=== PATIENT | male | born 1955 | race Caucasian/White ===

== ENCOUNTER → 2017-02-24 | Outpatient (CLI) | payer BC ==
[2017-02-24 11:00] LABS: HEMATOCRIT 52.4 % (37.9-51.0); HEMOGLOBIN 18.3 g/dL (13.5-17.0); HGB HCT DIFFERENCE 2.5; MEAN CORPUSCULAR HEMOGLOBIN 32.4 pg (27.0-33.4); MEAN CORPUSCULAR HGB CONC 34.9 g/dL (32.0-36.0); MEAN CORPUSCULAR VOLUME 93 fl (80-97); RED BLOOD COUNT 5.64 10^6/uL (4.35-5.55); RED CELL DISTRIBUTION WIDTH 12.6 % (11.5-14.0)
[2017-02-24 11:29] LABS: ALANINE AMINOTRANSFERASE 51 U/L (21-72); ALBUMIN 4.7 g/dL (3.5-5.0); ALKALINE PHOSPHATASE 97 U/L (38-126); ANION GAP 15 (5-19); ASPARTATE AMINO TRANSFERASE 45 U/L (17-59); BILIRUBIN,DIRECT 0.6 mg/dL (0.0-0.4); BILIRUBIN,TOTAL 1.6 mg/dL (0.2-1.3); BLOOD UREA NITROGEN 11 mg/dL (7-20); CALCIUM 10.2 mg/dL (8.4-10.2); CARBON DIOXIDE 26 mmol/L (22-30); CHLORIDE 101 mmol/L (98-107); CREATININE RESULT 0.95 mg/dL (0.52-1.25); GLUCOSE 191 mg/dL (75-110); POTASSIUM 3.9 mmol/L (3.6-5.0); SODIUM 141.5 mmol/L (137-145); TOTAL PROTEIN 7.9 g/dL (6.3-8.2)
[2017-02-27 06:39] LABS: HEPATITIS C GENOTYPE 3 1a (.)
[2017-02-27 07:43] LABS: HCV ALPHA 2-MACROGLOBULINS QNT 454 mg/dL (110-276); HCV FIBROSURE ALT P5P 48 IU/L (0-55); HCV FIBROSURE GGT 254 IU/L (0-65); HCV FIBROSURE HAPTOGLOBIN 157 mg/dL (34-200); HCVFIB APOLIPOPROTEIN A-1 136 mg/dL (101-178); NECROINFLAM ACTIVITY GRADE A1-A2 (.); NECROINFLAMM ACTIVITY SCORE 0.49 (0.00-0.17)
== END ==
LOC: RAD 09:32
PROVIDERS: ATTEND Internal Medicine Gastroenterology
DX: B18.2 Chronic viral hepatitis C (principal); R94.5 Abnormal results of liver function studies; K80.20 Calculus of gallbladder without cholecystitis without obstruction
CPT/HCPCS: 36415; 76705; 80053; 81270; 82172; 82247; 82977; 83010; 83883; 84460; 85027; 86317; 87340

== ENCOUNTER 2017-10-20 11:00 | Day surgery (SDC) | payer BC ==
[2017-10-13 11:17] LABS: HEMATOCRIT 51.2 % (37.9-51.0); HEMOGLOBIN 18.5 g/dL (13.5-17.0); MEAN CORPUSCULAR HEMOGLOBIN 34.5 pg (27.0-33.4); MEAN CORPUSCULAR HGB CONC 36.1 g/dL (32.0-36.0); MEAN CORPUSCULAR VOLUME 95 fl (80-97); RED BLOOD COUNT 5.36 10^6/uL (4.35-5.55); RED CELL DISTRIBUTION WIDTH 12.9 % (11.5-14.0); WHITE BLOOD COUNT 9.1 10^3/uL (4.0-10.5)
[2017-10-13 11:32] LABS: ANION GAP 12 (5-19); BLOOD UREA NITROGEN 11 mg/dL (7-20); CALCIUM 10.1 mg/dL (8.4-10.2); CARBON DIOXIDE 27 mmol/L (22-30); CHLORIDE 100 mmol/L (98-107); CREATININE RESULT 1.17 mg/dL (0.52-1.25); GLUCOSE 156 mg/dL (75-110); POTASSIUM 4.7 mmol/L (3.6-5.0); SODIUM 139.3 mmol/L (137-145)
[2017-10-13 11:47] LABS: HGB HCT DIFFERENCE 4.3
--- NOTE | 2017-10-13 11:52 | EKG REPORT ---
SEVERITY:- ABNORMAL ECG - SINUS RHYTHM LEFT ANTERIOR FASCICULAR BLOCK ABNORMAL T, CONSIDER ISCHEMIA, INFERIOR LEADS INFERIOR NH AGE INDETERMINATE : Confirmed by: Stephany Miranda 13-Oct-2017 11:52:07
[~2017-10-20 11:00] MED LIST: ACETAMINOPHEN 325 MG TABLET PO PRN; BUPIVACAINE HCL 0.25 % INJ/PF (2.5 MG/1 ML) 30 ML VIAL ONE; DEXAMETHASONE SOD PHOSPHATE INJ 4 MG/1 ML VIAL ONE; GLYCOPYRROLATE INJ 0.4 MG/2 ML VIAL ONE; LACTATED RINGERS 1000 ML IV PRN; LIDOCAINE 0.5% INJ-PF (5 MG/ML) 50 ML SDV SUBCUT PRN; LIDOCAINE 2% INJ-PF (20 MG/ML) 2 ML AMPUL ONE; NEOSTIGMINE METHYLSULFATE 10 MG/10 ML VIAL ONE; ONDANSETRON HCL INJ/PF 4 MG/2 ML SDV ONE; SUCCINYLCHOLINE CHLORIDE INJ 200 MG/10 ML VIAL ONE; VANCOMYCIN HCL 1,000 MG in DEXTROSE 5%-WATER 250 ML IV PRN
[2017-10-20 11:54] LABS: POTASSIUM 4.3 mmol/L (3.6-5.0)
[2017-10-20] MEDS ORDERED: FENTANYL CITRATE INJ/PF 100 MCG/2 ML AMPUL ONE (12:07)
[2017-10-20] MEDS ORDERED: MIDAZOLAM 2 MG/2 ML INJ ONE (12:08)
[2017-10-20] MEDS ORDERED: HYDROMORPHONE HCL INJ/PF 2 MG/ML AMPULE ONE (12:08)
[2017-10-20] MEDS ORDERED: PROPOFOL INJ 200 MG/20 ML VIAL IV ONE (12:08)
[2017-10-20] MEDS ORDERED: ACETAMINOPHEN 0 ML IV ONE (12:09)
[2017-10-20] MEDS ORDERED: DIPHENHYDRAMINE HCL 50 MG/ML VIAL IV PRN (13:23)
[2017-10-20] MEDS ORDERED: FENTANYL CITRATE INJ/PF 100 MCG/2 ML AMPUL IV PRN ×3 (13:23)
[2017-10-20] MEDS ORDERED: PROMETHAZINE HCL INJ 25 MG/1 ML VIAL IV PRN (13:23)
[2017-10-20] MEDS ORDERED: MORPHINE SULFATE 10 MG/ML INJ IV PRN (13:23)
[2017-10-20] MEDS: FENTANYL CITRATE INJ/PF 100 MCG/2 ML AMPUL ONE ×2 (14:03→14:10)
[2017-10-20] MEDS: MORPHINE SULFATE 10 MG/ML INJ ONE ×2 (14:15→14:50)
[2017-10-20] MEDS ORDERED: OXYCODONE-ACETAMINOPHEN 5-325 MG TABLET PO PRN (15:31)
[2017-10-20] MEDS ORDERED: ONDANSETRON HCL INJ/PF 4 MG/2 ML SDV IV PRN (15:52)
[2017-10-20] MEDS ORDERED: RINGERS SOLUTION,LACTATED 1,000 ML IV PRN (15:52)
--- NOTE | 2017-10-20 15:52 | PDOC DISCHARGE SUMMARY ---
Discharge Summary (SDC) - Discharge Final Diagnosis: Umbilical Hernia Date of Surgery: 10/20/17 Discharge Date: 10/20/17 Condition: Good Treatment or Instructions: Umbilical hernia repair. May discharge patient home when met discharge criteria. Follow-up with me in 2 weeks. Stay active but avoid strenuous activity. May shower tomorrow night. Keep Steri-Strips on. Prescriptions: Oxycodone HCl/Acetaminophen [Percocet 5-325 mg Tablet] 1 tab PO ASDIR PRN #25 tablet PRN Reason: Referrals: FIDELIA CHRISTIE MD [Primary Care Provider] - Discharge Diet: As Tolerated Discharge Activity: Activity As Tolerated - Stay active but avoid strenuous activity. Report the Following to Your Physician Immediately: Fever over 101 Degrees, Unusual Bleeding, Redness, Drainage-Foul Smelling
--- NOTE | 2017-10-20 15:56 | Operative Report ---
Operative Report DATE OF SURGERY: 10/20/17 PREOPERATIVE DIAGNOSIS: Umbilical hernia POSTOPERATIVE DIAGNOSIS: Same OPERATION: Umbilical hernia repair. SURGEON: RADHA ROCHE ANESTHESIA: GA TISSUE REMOVED OR ALTERED: Hernia sac COMPLICATIONS: None ESTIMATED BLOOD LOSS: Minimal INTRAOPERATIVE FINDINGS: 1.5 cm umbilical hernia fascial defect with herniated preperitoneal fat PROCEDURE: Informed consent was obtained. Patient was brought to the operating room placed on the operating room table in the supine position. After satisfactory induction of general anesthesia, patient's abdomen was prepped and draped in the usual sterile fashion. A semicircular infraumbilical incision was made, dissection was carried down. The hernia sac was dissected away from the surrounding structures. It was opened revealing no incarcerated contents. The hernia sac consisted of thickened preperitoneal fat. Hernia sac was excised. The fascial defect measured 1.5 cm in size. Therefore primary repair was performed with interrupted Ethibond sutures repairing the hernia in a transverse direction. Repair came together well without tension. Repair appeared secure. The bellybutton was tacked to the underlying fascia using interrupted Vicryl sutures. Skin was closed with deep dermal interrupted Vicryl sutures followed by running subcuticular Monocryl suture. Marcaine was injected at the operative site. Patient tolerated procedure well with no apparent complications and was taken to the recovery area in stable condition.
[2017-10-20 17:26] VITALS: BP 123/80
== END 2017-10-20 17:24 | disposition home or self-care (01) ==
LOC: OROUT 11:00
PROVIDERS: ATTEND Surgery
PROC: 0WQF0ZZ Repair Abdominal Wall, Open Approach (ICD-10-PCS; principal; 2017-10-20 12:45)
DX: K42.9 Umbilical hernia without obstruction or gangrene (principal); I10 Essential (primary) hypertension; F17.210 Nicotine dependence, cigarettes, uncomplicated; E11.9 Type 2 diabetes mellitus without complications; Z88.0 Allergy status to penicillin; Z79.82 Long term (current) use of aspirin; Z79.84 Long term (current) use of oral hypoglycemic drugs
CPT/HCPCS: 93005; 36415 ×2; 82962; 82947; 84132; 85027; 80048; 88302 ×2; 93010; 49585; J2250; J1100; J3010; J2270; J0330; J2405; J7060; J2704; J3370; J3490; 750; J0131; J1170

== ENCOUNTER 2018-05-10 08:45 | Inpatient (IN) | payer BC ==
[2018-05-10] MEDS ORDERED: NORMAL SALINE 1000 ML 1,000 ML IV ONE (09:35)
--- NOTE | 2018-05-10 09:39 | ER Document Report ---
ED General - General Chief Complaint: Numbness Stated Complaint: NUMBNESS IN FINGERS Time Seen by Provider: 05/10/18 09:20 Mode of Arrival: Ambulatory Information source: Patient, Relative Notes: 62-year-old male with hypertension, coronary artery disease, type 2 diabetes, hep C presents with complaint of lip numbness and right index finger and thumb numbness that started 2 days prior to arrival. Patient states that 3 days prior to arrival he attended his granddaughter's wedding which was held outside in 100 weather. Patient states that he became overheated from working outside all day. Patient states since that time he has just felt fatigued. Patient also had an episode of feeling off balance that self resolved. Patient denies any fever, chills, blurred vision, slurred speech, weakness, chest pain, shortness of breath, abdominal pain. He has been eating, drinking and urinating normally. His last bowel movement was this morning and he denies any black or bloody stools. TRAVEL OUTSIDE OF THE [place] IN LAST 30 DAYS: No - HPI Onset: Other Onset/Duration: Gradual Quality of pain: No pain Severity: None Associated symptoms: None Exacerbated by: Denies Relieved by: Denies Similar symptoms previously: No Recently seen / treated by doctor: No - Related Data Allergies/Adverse Reactions: Penicillins Allergy (Severe, Verified 10/08/17 13:21) succinylcholine chloride [From Anectine] Allergy (Severe, Verified 10/08/17 13: 21) Past Medical History - General Information source: Patient, Relative, [facility] Records - Social History Smoking Status: Current Every Day Smoker Cigarette use (# per day): Yes - 15 Smoking Education Provided: Yes - Patient counselled regarding cessation for 4 minutes Frequency of alcohol use: Occasional Drug Abuse: None Lives with: Spouse/Significant other Family History: Reviewed & Not Pertinent Patient has suicidal ideation: No Patient has homicidal ideation: No - Past Medical History Cardiac Medical History: Reports: Hx Coronary Artery Disease, Hx Hypertension Denies: Hx Heart Attack Pulmonary Medical History: Reports: Hx Pneumonia Denies: Hx Asthma, Hx Bronchitis, Hx COPD Neurological Medical History: Denies: Hx Cerebrovascular Accident, Hx Seizures Endocrine Medical History: Reports: Hx Diabetes Mellitus Type 2 Renal/ Medical History: Reports: Hx Kidney Stones GI Medical History: Reports: Hx Hepatitis - C Musculoskeltal Medical History: Denies Hx Arthritis Infectious Medical History: Reports: Hx Hepatitis - C Past Surgical History: Reports: Hx Cardiac Catheterization - Stents 2008 and 2013, Hx Coronary Stent, Hx Orthopedic Surgery - right knee arthroscopic surgery , Hx Urinary Tract Surgery - kidney stone removal - Immunizations Hx Diphtheria, Pertussis, Tetanus Vaccination: Yes Review of Systems - Review of Systems Notes: REVIEW OF SYSTEMS: CONSTITUTIONAL : Denies fever, chills, or sweats. Denies recent illness. Denies weight loss, recent hospitalizations. EENT: Denies visual changes, eye pain. Denies nasal or sinus congestion or discharge. Denies sore throat, oral lesions, difficulty swallowing. CARDIOVASCULAR: Denies chest pain. Denies palpitations. Denies lower extremity edema. RESPIRATORY: Denies cough, cold, or chest congestion. Denies shortness of breath, wheezing. GASTROINTESTINAL: Denies abdominal pain or distention. Denies nausea, vomiting , or diarrhea. Denies blood in vomitus, stools, or per rectum. Denies black, tarry stools. Denies constipation. GENITOURINARY: Denies difficulty urinating, painful urination, frequency, blood in urine, or vaginal discharge. MUSCULOSKELETAL: Denies back or neck pain or stiffness. Denies joint pain or swelling. SKIN: Denies rash, lesions or sores. HEMATOLOGIC : Denies easy bruising or bleeding. LYMPHATIC: Denies swollen glands. NEUROLOGICAL: Denies confusion or altered mental status. Denies passing out or loss of consciousness. Denies dizziness or lightheadedness. Denies headache. Denies weakness or paralysis. Denies problems difficulty with ambulation, slurred speech. Denies seizures. PSYCHIATRIC: Denies anxiety or stress. Denies depression, suicidal ideation, or homicidal ideation. Denies visual or auditory hallucinations. Physical Exam - Vital signs Vitals: Temp Pulse Resp BP Pulse Ox 97.9 F 67 18 139/95 H 97 05/10/18 08:51 05/10/18 08:51 05/10/18 08:51 05/10/18 08:51 05/10/18 08:51 - Notes Notes: PHYSICAL EXAMINATION: GENERAL: Well-appearing, well-nourished and in no acute distress. HEAD: Atraumatic, normocephalic. EYES: Pupils equal round and reactive to light, extraocular movements intact, sclera anicteric, conjunctiva are normal. ENT: Nares patent, oropharynx clear without exudates. Moist mucous membranes. NECK: Normal range of motion, supple without lymphadenopathy LUNGS: Breath sounds clear to auscultation bilaterally and equal. No wheezes rales or rhonchi. HEART: Regular rate and rhythm without murmurs ABDOMEN: Soft, nontender, nondistended abdomen. No guarding, no rebound. No masses appreciated. Musculoskeletal: Normal range of motion, no pitting or edema. No cyanosis. NEUROLOGICAL: Cranial nerves grossly intact. Normal speech, normal gait. Normal sensory, motor exams. NIH-0. GCS 15 PSYCH: Normal mood, normal affect. SKIN: Warm, Dry, normal turgor, no rashes or lesions noted. Course - Re-evaluation Re-evalutation: Laboratory 05/10/18 05/10/18 05/10/18 09:19 09:19 09:19 WBC 9.0 RBC 5.10 Hgb 17.5 H Hct 49.9 MCV 98 H MCH 34.3 H MCHC 35.1 RDW 13.3 Plt Count 209 Seg Neutrophils % 66.7 Lymphocytes % 24.5 Monocytes % 7.5 Eosinophils % 0.6 Basophils % 0.7 Absolute Neutrophils 6.0 Absolute Lymphocytes 2.2 Absolute Monocytes 0.7 Absolute Eosinophils 0.1 Absolute Basophils 0.1 PT 14.5 INR 1.07 APTT 28.6 Sodium 144.5 Potassium 4.1 Chloride 102 Carbon Dioxide 32 H Anion Gap 11 BUN 17 Creatinine 1.11 Est GFR ( Amer) > 60 Est GFR (Non-Af Amer) > 60 Glucose 183 H Calcium 10.2 Magnesium 1.7 Creatine Kinase 51 L Urine Color Urine Appearance Urine pH Ur Specific [place] Urine Protein Urine Glucose (UA) Urine Ketones Urine Blood Urine Nitrite Urine Bilirubin Urine Urobilinogen Ur Leukocyte Esterase Urine WBC (Auto) Urine RBC (Auto) U Hyaline Cast (Auto) Squamous Epi Cells Auto Urine Mucus (Auto) Urine Ascorbic Acid Urine Opiates Screen Urine Methadone Screen Ur Barbiturates Screen Ur Phencyclidine Scrn Ur Amphetamines Screen U Benzodiazepines Scrn Urine Cocaine Screen U Marijuana (THC) Screen 05/10/18 05/10/18 09:40 09:40 WBC RBC Hgb Hct MCV MCH MCHC RDW Plt Count Seg Neutrophils % Lymphocytes % Monocytes % Eosinophils % Basophils % Absolute Neutrophils Absolute Lymphocytes Absolute Monocytes Absolute Eosinophils Absolute Basophils PT INR APTT Sodium Potassium Chloride Carbon Dioxide Anion Gap BUN Creatinine Est GFR ( Amer) Est GFR (Non-Af Amer) Glucose Calcium Magnesium Creatine Kinase Urine Color YELLOW Urine Appearance CLEAR Urine pH 5.0 Ur Specific [place] 1.026 Urine Protein 30 H Urine Glucose (UA) NEGATIVE Urine Ketones NEGATIVE Urine Blood NEGATIVE Urine Nitrite NEGATIVE Urine Bilirubin NEGATIVE Urine Urobilinogen NEGATIVE Ur Leukocyte Esterase NEGATIVE Urine WBC (Auto) 6 Urine RBC (Auto) 0 U Hyaline Cast (Auto) 1 Squamous Epi Cells Auto 5 Urine Mucus (Auto) RARE Urine Ascorbic Acid NEGATIVE Urine Opiates Screen NEGATIVE Urine Methadone Screen NEGATIVE Ur Barbiturates Screen NEGATIVE Ur Phencyclidine Scrn NEGATIVE Ur Amphetamines Screen NEGATIVE U Benzodiazepines Scrn NEGATIVE Urine Cocaine Screen NEGATIVE U Marijuana (THC) Screen NEGATIVE Head CT 05/10/18 09:34 IMPRESSION: 1 No acute intracranial abnormality. 2 Slight to mild chronic right maxillary sinus disease. Small mucous retention cyst or polyp. EVIDENCE OF ACUTE STROKE: NO. Head MRI 05/10/18 11:05 IMPRESSION: Area of acute infarction basal ganglia on the left. Mild microvascular ischemia. EVIDENCE OF ACUTE STROKE: YES. LEFT MCA 05/10/18 15:51 62-year-old male with history of hypertension, coronary artery disease, type 2 diabetes and hepatitis C presents with complaint of 2 days of right sided paresthesias of his lips, index finger and thumb started 2 days prior to arrival. Patient was seen by myself upon arrival. Vital signs were reviewed. Patient is afebrile, normotensive and not hypoxic. Patient does not appear toxic or dehydrated. They are in no acute distress. Previous medical records and nursing notes reviewed. Significant findings include MRI that was significant for acute infarction of the left basal ganglia, left MCA. Patient received IV fluids, aspirin. NIH was performed and 0. Patient has remained stable throughout his ED course and will be admitted to the hospitalist. 05/10/18 15:53 - Vital Signs Vital signs: Temp Pulse Resp BP Pulse Ox 97.9 F 60 20 138/80 H 99 05/10/18 08:51 05/10/18 15:00 05/10/18 15:00 05/10/18 15:00 05/10/18 15:00 - Laboratory Result Diagrams: 05/10/18 09:19 05/10/18 09:19 Laboratory results interpreted by me: 05/10/18 05/10/18 05/10/18 09:19 09:19 09:40 Hgb 17.5 H MCV 98 H MCH 34.3 H Carbon Dioxide 32 H Glucose 183 H Creatine Kinase 51 L Urine Protein 30 H - Diagnostic Test Radiology reviewed: Image reviewed, Reports reviewed - EKG Interpretation by Me EKG shows normal: Sinus rhythm Rate: Normal Rhythm: NSR When compared to previous EKG there are: No significant change - T-wave inversion in lead III and aVF which are unchanged from previous EKG Discharge - Discharge Clinical Impression: Arterial ischemic stroke, MCA (middle cerebral artery), left, acute, Facial paresthesia Condition: Good Disposition: ADMITTED INPATIENT Admitting Provider: Hospitalist Unit Admitted: Medical Floor Referrals: FIDELIA CHRISTIE MD [Primary Care Provider] - Follow up as needed ED NIH Stroke Scale - NIH Stroke Scale When completed:: Before Alteplase *: 1. NIH scale should be completed with appropriate accompanying assessment tools. *: 2. The NIH should reflect what the patient is capable of doing and should not be coached by the clinician. 1a. Level of Consciousness: 0=Alert;keenly responsive -: 1=Drowsy -: 2=Obtunded -: 3=Coma/unresponsive or reflex to noxious stimuli. 1a. Responses: 0 1b. Orientation Questions: a. What month is it? -: b. How old are you? -: 0=Answers both questions correctly. -: 1=Answers one question correctly or patient is intubated or has orotracheal trauma. -: 2=Answers neither question correctly. 1b. Responses: 0 1c. Response to commands: a. Open and close eyes? -: b. Jelly Maker and release hand? -: Credit is given despite weakness. Demonstration of task is permitted. Substitute command if hands cannot be used. -: 0=Performs both tasks correctly -: 1=Performs one task correctly -: 2=Performs neither task correctly 1c. Responses: 0 2. Gaze: Establish eye contact and instruct patient to "Follow my finger" -: 0=Normal -: 1=Partial gaze palsy. Gaze is abnormal in one or both eyes, but where forced deviation or total gaze paresis is not present. -: 2=Forced deviation or total gaze paresis. 2. Responses: 0 3. Visual Tobin: Sees fingers in all four quadrants. -: 0=No visual loss. -: 1=Partial hemianopsia. -: 2=Complete hemianopsia. -: 3=Bilateral hemianopsia (including Cortical blindness) 3. Responses: 0 4. Facial Movement: Instruct patient to: -: a. Show me your teeth -: b. Raise your eyebrows -: c. Close your eyes -: d. Smile -: 0=Normal symmetrical movement -: 1=Minor paralysis (flattened nasolabial fold, asymmetry on smiling). -: 2=Partial paralysis (total or near total paralysis of lower face). -: 3=Complete paralysis of upper and lower face 4. Responses: 0 5. Motor functions (left arm): Alternate sides and extend each arm with palms down (90 degrees if sitting or 45 degrees for supine). -: 0=No drift;limb holds for full 10 seconds. -: 1=Drift; limb holds but drifts down before full 10 seconds, but does not hit bed. -: 2=Some effort against gravity; limb cannot get to or maintain position. -: 3=No effort against gravity; limb falls. -: 4=No movement. -: UN=Amputation, joint fusion, explain in comments. 5. Responses (left arm): 0 5. Motor Functions (right arm): Alternate sides and extend each arm with palms down (90 degrees if sitting or 45 degrees for supine). -: 0=No drift;limb holds for full 10 seconds. -: 1=Drift; limb holds but drifts down before full 10 seconds, but does not hit bed. -: 2=Some effort against gravity; limb cannot get to or maintain position. -: 3=No effort against gravity; limb falls. -: 4=No movement. -: UN=Amputation, joint fusion, explain in comments. 5. Responses (right arm): 0 6. Motor Functions (left leg): With patient lying supine, alternate sides and extend each leg (30 degrees always while supine). -: 0=No drift, leg holds position for full 5 seconds -: 1=Drift; leg falls before full 5 seconds but does not hit bed. -: 2=Some effort against gravity, leg falls to bed but some effort against gravity. -: 3=No effort against gravity, leg falls to bed immediately. -: 4=No movement. -: UN=Amputation, joint fusion; explain in comments. 6. Responses (left leg): 0 6. Motor Functions (right leg): With patient lying supine, alternate sides and extend each leg (30 degrees always while supine). -: 0=No drift, leg holds position for full 5 seconds -: 1=Drift; leg falls before full 5 seconds but does not hit bed. -: 2=Some effort against gravity, leg falls to bed but some effort against gravity. -: 3=No effort against gravity, leg falls to bed immediately. -: 4=No movement. -: UN=Amputation, joint fusion; explain in comments. 6. Responses (right leg): 0 7. Limb Ataxia: With eyes open instruct patient to: -: a. "Touch your finger to your nose". -: b. "Touch your heel to your nunez" -: 0=Absent -: 1=Present in one limb. -: 2=Present in two limbs. -: UN=Amputation or joint fusion; explain in comments. 7. Responses: 0 8. Sensory: Test sensation using pinprick or noxious stimuli. Test as many body parts as possible. -: 0=Normal;no sensory loss -: 1=Mile to moderate sensory loss (patient feels pin prick but is less sharp on affected side). -: 2=Severe or total sensory loss. 8. Responses: 0 9. Best Language: Instruct patient to: -: a. "Describe what you see in this picture." -: b. "Name the items in this picture." -: c. "Read these sentences." -: 0=No aphasia, normal -: 1=Mild to moderate aphasia. -: 2=Severe aphasia -: 3=Mute, global aphasia, no usable speech or auditory comprehension. 9. Responses: 0 10. Articulation, Dysarthia: Instruct patient to: -: "Read these words" or "Repeat these words" -: 0=Normal -: 1=Mild to moderate; patient may slur some words but can be understood without difficulty. -: 2=Severe; patients speech so slurred as to be unintelligible in the absence of dysphasia. -: UN=Intubated or other physical barrier, explain in comments. 10. Responses: 0 11. Extinction or inattention: 0=No abnormality -: 1= Visual, tactile, auditory, spatial, or personal inattention or extinction to bilateral simulation in one or the sensory modalities. -: 2=Profound angie-inattention or angie-inattention to more than one modality; does not recognize own hand. 11. Responses: 0 Total Score: 0
[2018-05-10 10:16] LABS: ABSOLUTE BASOPHILS # (AUTO) 0.1 10^3/uL (0.0-0.2); ABSOLUTE EOSINOPHILS # (AUTO) 0.1 10^3/uL (0.0-0.6); ABSOLUTE LYMPHOCYTES (AUTO) 2.2 10^3/uL (0.5-4.7); ABSOLUTE MONOCYTES (AUTO) 0.7 10^3/uL (0.1-1.4); BASOPHILS % (AUTO) 0.7 % (0-2); EOSINOPHILS % (AUTO) 0.6 % (0-6); HEMATOCRIT 49.9 % (37.9-51.0); HEMOGLOBIN 17.5 g/dL (13.5-17.0); LYMPHOCYTES % (AUTO) 24.5 % (13-45); MEAN CORPUSCULAR HEMOGLOBIN 34.3 pg (27.0-33.4); MEAN CORPUSCULAR HGB CONC 35.1 g/dL (32.0-36.0); MEAN CORPUSCULAR VOLUME 98 fl (80-97); MONOCYTES % (AUTO) 7.5 % (3-13); PLATELET COUNT 209 10^3/uL (150-450); RED CELL DISTRIBUTION WIDTH 13.3 % (11.5-14.0); SEGMENTED NEUTROPHILS % (AUTO) 66.7 % (42-78); TOTAL CELLS COUNTED % (AUTO) 100 %
--- NOTE | 2018-05-10 10:18 | RADIOLOGY REPORT (SQ) ---
EXAM DESCRIPTION: CT HEAD WITHOUT COMPLETED DATE/TIME: 05/10/2018 9:53 am REASON FOR STUDY: Right sided paresthesia COMPARISON: None. TECHNIQUE: Axial images acquired through the brain without intravenous contrast. Images reviewed wi th bone, brain and subdural windows. Additional sagittal and coronal reconstructions were generated. Images stored on PACS. All CT scanners at this facility use dose modulation, iterative reconstruction, and/or weight based d osing when appropriate to reduce radiation dose to as low as reasonably achievable (ALARA). [facility]: Dose Right [facility]: CareDose [facility]: Dose Right [facility]: Teradose 4D [facility]: [employer] RADIATION DOSE: CT Rad equipment meets quality standard of care and radiation dose reduction techniq ues were employed. CTDIvol: 53.2 mGy. DLP: 1097 mGy-cm. mGy. LIMITATIONS: None. FINDINGS: VENTRICLES: Normal size and contour. The cisterns are patent. CEREBRUM: No masses. No hemorrhage. No midline shift. No evidence for acute infarction. Normal gra y/white matter differentiation. No areas of low density in the white matter. CEREBELLUM: No masses. No hemorrhage. No alteration of density. No evidence for acute infarction. EXTRAAXIAL SPACES: Mild age related involutional change. No fluid collections. No masses. ORBITS AND GLOBE: No intra- or extraconal masses. Normal contour of globe without masses. CALVARIUM: No fracture. PARANASAL SINUSES: Slight to mild mucosal thickening and small mucous retention cyst or polyp in the right maxillary sinus. SOFT TISSUES: No mass or hematoma. OTHER: Atherosclerotic changes involving the cavernous portion of the internal carotid arteries and the intracranial portion of the vertebral artery is bilaterally. IMPRESSION: 1 No acute intracranial abnormality. 2 Slight to mild chronic right maxillary sinus disease. Small mucous retention cyst or polyp. EVIDENCE OF ACUTE STROKE: NO. COMMENT: Quality ID # [id number]: Final reports with documentation of one or more dose reduction techniques (e.g., Automated exposure control, adjustment of the mA and/or kV according to patient size, use of iterative reconstruction technique) TECHNICAL DOCUMENTATION: JOB ID: [id number] [employer]- All Rights Reserved Reading location - IP/workstation name: [email or web address]
[2018-05-10 10:22] LABS: INTERNATIONAL RATION (INR) 1.07; PROTHROMBIN TIME 14.5 SEC (11.4-15.4)
[2018-05-10 10:23] LABS: PARTIAL THROMBOPLASTIN TIME 28.6 SEC (23.5-35.8)
[2018-05-10 10:31] LABS: APPEARANCE,URINE CLEAR; BILIRUBIN,URINE NEGATIVE (NEGATIVE); COLOR,URINE YELLOW; GLUCOSE, URINE NEGATIVE (NEGATIVE); KETONES,URINE NEGATIVE (NEGATIVE); LEUKOCYTE ESTERASE,URINE NEGATIVE (NEGATIVE); NITRITE,URINE NEGATIVE (NEGATIVE); PROTEIN,URINE 30 mg/dL (NEGATIVE); URINE SPECIFIC GRAVITY 1.026; UROBILINOGEN,URINE NEGATIVE mg/dL (<2.0)
[2018-05-10 10:38] LABS: ANION GAP 11 (5-19); BLOOD UREA NITROGEN 17 mg/dL (7-20); CALCIUM 10.2 mg/dL (8.4-10.2); CARBON DIOXIDE 32 mmol/L (22-30); CHLORIDE 102 mmol/L (98-107); CREATINE KINASE 51 U/L (55-170); GLUCOSE 183 mg/dL (75-110); POTASSIUM 4.1 mmol/L (3.6-5.0); SODIUM 144.5 mmol/L (137-145)
[2018-05-10 10:43] LABS: URINE AMPHETAMINES SCREEN NEGATIVE; URINE BARBITURATES SCREEN NEGATIVE; URINE BENZODIAZEPINES SCREEN NEGATIVE; URINE COCAINE SCREEN NEGATIVE; URINE MARIJUANA (THC) SCREEN NEGATIVE; URINE METHADONE SCREEN NEGATIVE; URINE PHENCYCLIDINE SCREEN NEGATIVE
[2018-05-10] MEDS ORDERED: THIAMINE HCL 100 MG, FOLIC ACID 1 MG in NORMAL SALINE 250 ML IV ONE (11:05)
--- NOTE | 2018-05-10 12:44 | EKG REPORT ---
SEVERITY:- ABNORMAL ECG - SINUS RHYTHM LEFT ANTERIOR FASCICULAR BLOCK NONSPECIFIC T ABNORMALITIES, INFERIOR LEADS : Confirmed by: Manuel Johnson MD 10-May-2018 12:42:48
[2018-05-10] MEDS ORDERED: ASPIRIN 81 MG TABLET, CHEWABLE PO ONE (15:17)
--- NOTE | 2018-05-10 15:23 | RADIOLOGY REPORT (SQ) ---
EXAM DESCRIPTION: MRI HEAD WITHOUT COMPLETED DATE/TIME: 05/10/2018 2:37 pm REASON FOR STUDY: facial numbness righ hand weakness right COMPARISON: CT same date TECHNIQUE: Multiplanar imaging includes non-contrasted T1, T2, FLAIR, and Diffusion with ADC map seq uences. Images stored on PACS. LIMITATIONS: None. FINDINGS: ANATOMY: No anomalies. Normal vascular flow voids. Pituitary fossa normal. CSF SPACES: Normal in size and contour. No hemorrhage. CEREBRUM: A few high-signal intensity lesions scattered throughout the white matter on FLAIR imaging with distribution suggesting chronic micro-vascular ischemic change. Sulci and gyri normal in size a nd contour. No evidence of hemorrhage, mass or extraaxial fluid collection. POSTERIOR FOSSA: No signal alteration. No hemorrhage. No edema, masses or mass effect. Internal diogenes tory canals, cerebello-pontine angles, mastoids normal. DIFFUSION: Focal restricted diffusion of basal ganglia on the left indicating acute infarction. ORBITS: No masses. Globes normal. PARANASAL SINUSES: No fluid levels. Mucosa normal. OTHER: No other significant finding. IMPRESSION: Area of acute infarction basal ganglia on the left. Mild microvascular ischemia. EVIDENCE OF ACUTE STROKE: YES. LEFT MCA TECHNICAL DOCUMENTATION: JOB ID: [id number] [employer]- All Rights Reserved Reading location - IP/workstation name: [email or web address]
--- NOTE | 2018-05-10 17:15 | PDOC H&P ---
History of Present Illness Admission Date/PCP: 05/10/18 15:48 FIDELIA CHRISTIE MD History of Present Illness: NAVID CUMMINGS is a 62 year old male who had some dizziness 3 days ago while doing some light outdoor work. The next day he had some trouble driving, couldn 't keep the car in the igor consistently. Yesterday and today he had some numbness in the tips of his right thumb and right index finger, and in his lips on the right side of his face. He had some trouble standing on his right foot, mainly a balance problem because he did not feel weak. His MRI in the ER was positive for a stroke in the basal ganglia. Past Medical History Cardiac Medical History: Reports: Coronary Artery Disease, Hypertension Denies: Myocardial Infarction Pulmonary Medical History: Reports: Pneumonia Denies: Asthma, Bronchitis, Chronic Obstructive Pulmonary Disease (COPD) Neurological Medical History: Denies: Seizures Endocrine Medical History: Reports: Diabetes Mellitus Type 2 GI Medical History: Reports: Hepatitis - C Musculoskeltal Medical History: Denies: Arthritis Hematology: Denies: Anemia Past Surgical History Past Surgical History: Reports: Cardiac Catheterization - Stents 2008 and 2012, Coronary Stent, Orthopedic Surgery - right knee arthroscopic surgery Social History Information Source: Patient 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 Lives with: Spouse/Significant other Smoking Status: Current Every Day Smoker Family History Family History: Reviewed & Not Pertinent Parental Family History Reviewed: No - non-contributory Children Family History Reviewed: No - non-contributory Sibling(s) Family History Reviewed.: No - non-contributory Medication/Allergy Home Medications: Aspirin [Aspirin 81 mg Chewable Tablet] 81 mg PO DAILY 08/20/14 Atenolol [Tenormin 25 mg Tablet] 25 mg PO DAILY 08/20/14 Clonidine HCl [Catapres] 0.1 mg PO Q12 08/20/14 Glyburide/Metformin HCl [Glyburide-Metformin 2.5-500 mg] 1 each PO BID 08/20/14 Docusate Sodium [Colace 100 mg Capsule] 100 mg PO DAILY #20 capsule 10/15/14 Oxycodone HCl/Acetaminophen [Percocet 5-325 mg Tablet] 1 - 2 tab PO Q4H PRN #25 tablet 10/15/14 Bupropion HCl [Wellbutrin 75 mg Tablet] 1 tab PO DAILY 10/20/17 Glipizide [Glipizide Xl] 1 tab PO DAILY 10/20/17 Oxycodone HCl/Acetaminophen [Percocet 5-325 mg Tablet] 1 tab PO ASDIR PRN #25 tablet 10/20/17 Allergies/Adverse Reactions: Penicillins Allergy (Severe, Verified 10/08/17 13:21) succinylcholine chloride [From Anectine] Allergy (Severe, Verified 10/08/17 13: 21) Review of Systems All systems: reviewed and no additional remarkable complaints except as stated - 10 point ROS conducted with the patient and was negative except as noted in the HPI Physical Exam Vital Signs: Temp Pulse Resp BP Pulse Ox 97.9 F 60 20 138/80 H 99 05/10/18 08:51 05/10/18 15:00 05/10/18 15:00 05/10/18 15:00 05/10/18 15:00 General appearance: PRESENT: no acute distress, cooperative, well-developed, well-nourished Head exam: PRESENT: atraumatic, normocephalic Eye exam: PRESENT: conjunctiva pink, EOMI, PERRLA. ABSENT: scleral icterus Ear exam: PRESENT: normal external ear exam Mouth exam: PRESENT: moist, neck supple Throat exam: ABSENT: post pharyngeal erythema, tonsillar erythema, tonsillar exudate, tonsillogmegaly Neck exam: ABSENT: carotid bruit, JVD, lymphadenopathy, thyromegaly Respiratory exam: PRESENT: clear to auscultation geena. ABSENT: rales, rhonchi, wheezes Cardiovascular exam: PRESENT: RRR. ABSENT: diastolic murmur, rubs, systolic murmur Pulses: PRESENT: normal carotid pulses, normal radial pulses Vascular exam: PRESENT: normal capillary refill GI/Abdominal exam: PRESENT: normal bowel sounds, soft. ABSENT: distended, guarding, mass, organolmegaly, rebound, tenderness Extremities exam: PRESENT: full ROM. ABSENT: clubbing, pedal edema Musculoskeletal exam: PRESENT: ambulatory, normal inspection. ABSENT: deformity Neurological exam: PRESENT: alert, awake, oriented to person, oriented to place , oriented to time, oriented to situation, CN II-XII grossly intact, motor sensory deficit - tingling right tips of thumb and index finger Psychiatric exam: PRESENT: appropriate affect, normal mood Skin exam: PRESENT: dry, warm Results Laboratory Results: reviewed Impressions: Head CT 05/10/18 09:34 IMPRESSION: 1 No acute intracranial abnormality. 2 Slight to mild chronic right maxillary sinus disease. Small mucous retention cyst or polyp. EVIDENCE OF ACUTE STROKE: NO. Head MRI 05/10/18 11:05 IMPRESSION: Area of acute infarction basal ganglia on the left. Mild microvascular ischemia. EVIDENCE OF ACUTE STROKE: YES. LEFT MCA Assessment & Plan - Diagnosis (1) Arterial ischemic stroke, MCA (middle cerebral artery), left, acute Is this a current diagnosis for this admission?: Yes Plan: MRA head and neck. ASA, refused statin, claimed to have had muscle aches from prior statin use. PT/OT/ST. Echocardiogram. Discussed importance of quitting smoking. Check lipid panel and HgbA1c. 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 Continue oral meds. Consistent carb diet. - Time Time Spent: 50 to 70 Minutes Medications reviewed and adjusted accordingly: Yes
[2018-05-10] MEDS ORDERED: ENOXAPARIN SODIUM INJ 40 MG/0.4 ML DISP.SYRIN SUBCUT ONE (17:30)
[2018-05-10] MEDS ORDERED: GLYBURIDE PO SCH (18:00)
[2018-05-10] MEDS ORDERED: METFORMIN HCL PO SCH (18:00)
[2018-05-10] MEDS: METFORMIN HCL 500 MG TABLET PO SCH (18:15)
[2018-05-10] MEDS: GLYBURIDE 2.5 MG TABLET PO SCH (18:15)
[2018-05-10] MEDS: CLONIDINE HCL 0.1 MG TABLET PO SCH (23:48)
[2018-05-11 05:50] LABS: CHOLESTEROL 169.65 mg/dL (0-200); TRIGLYCERIDES 450 mg/dL (<150)
[2018-05-11 06:02] LABS: DIRECT LDL 80 mg/dL (<100)
--- NOTE | 2018-05-11 07:16 | RADIOLOGY REPORT (SQ) ---
EXAM DESCRIPTION: MRA NECK COMBO COMPLETED DATE/TIME: 05/10/2018 10:29 pm REASON FOR STUDY: acute ischemic stroke COMPARISON: CT brain 05/10/2018 MRI brain 05/10/2018 MRA exam [place] 05/10/2018 TECHNIQUE: Axial 2-D volume acquisition imaging through the extracranial carotid and vertebral arter ies with reformatting using 3-D MIPS. LIMITATIONS: None. FINDINGS: There is no flow signal in the right internal carotid artery throughout its course in the neck. Right ICA appears occluded at its origin off the bifurcation. Right ICA is occluded at the sk ull base. Left carotid bifurcation is abnormal, with high-grade greater than 80% stenosis of the proximal left ICA at the bifurcation due to circumferential plaque. This is best shown on source images 79/216 thr ough 83/216. Remainder of the left internal carotid artery is patent throughout the neck. Right vertebral artery is dominant, patent throughout the neck. Left vertebral artery is small, and patent throughout the neck. IMPRESSION: Occluded right internal carotid artery from the bifurcation through the skullbase. Critical stenosis left proximal ICA at the bifurcation, greater than 80% stenosis. Results called to the patient's nurse Yaneli at 0700 hours 05/11/2018 COMMENT: Quality ID #[id number]: Measurements of distal internal carotid diameter were used as the denomin ator for stenosis measurement. TECHNICAL DOCUMENTATION: JOB ID: [id number] [employer]- All Rights Reserved Reading location - IP/workstation name: [email or web address]
--- NOTE | 2018-05-11 07:16 | RADIOLOGY REPORT (SQ) ---
EXAM DESCRIPTION: MRA HEAD WITHOUT COMPLETED DATE/TIME: 05/10/2018 9:45 pm REASON FOR STUDY: acute ischemic stroke COMPARISON: MRI brain 05/10/2018, CT brain 05/10/2018 MRA exam carotid bifurcations TECHNIQUE: Axial 3-D [id number] acquisition imaging performed through the brain in the area of t he [place]. Images reformatted using 3-D MIPS. LIMITATIONS: None. FINDINGS: Absent flow is seen in the high cervical, petrous, and cavernous right ICA. MRA carotid b ifurcations shows occlusion of the right ICA from the bifurcation through the skullbase. [place] MRA demonstrates decreased flow signal in the right middle cerebral artery and its bran ches. No right MCA aneurysm. Flow is likely across the patent anterior communicating artery. Tiny patent right posterior communicating artery. Normal flow signal in the right and left anterior cerebral artery, left middle cerebral artery. There is normal flow signal in the vertebrobasilar system. Results called to the patient's nurse, Yaneli on third floor 7 am 05/11/2018. IMPRESSION: Absent flow signal in the right internal carotid artery at the skullbase. There diminished flow signal in the right middle cerebral artery, flow to the right middle cerebral a rtery is likely across the anterior communicating artery and a small right posterior communicating ar carrie. COMMENT: Dictation down time TECHNICAL DOCUMENTATION: JOB ID: [id number] [employer]- All Rights Reserved Reading location - IP/workstation name: [email or web address]
[2018-05-11] MEDS ORDERED: ATENOLOL 25 MG PO SCH (10:00)
[2018-05-11] MEDS: CLONIDINE HCL 0.1 MG TABLET PO SCH ×2 (11:16→22:03)
[2018-05-11] MEDS: METFORMIN HCL 500 MG TABLET PO SCH ×2 (11:17→17:44)
[2018-05-11] MEDS: BUPROPION HCL 75 MG TABLET PO SCH (11:17)
[2018-05-11] MEDS: ENOXAPARIN SODIUM INJ 40 MG/0.4 ML DISP.SYRIN SUBCUT SCH (11:18)
[2018-05-11] MEDS: GLYBURIDE 2.5 MG TABLET PO SCH ×2 (11:33→17:44)
[2018-05-11] MEDS: ASPIRIN 325 MG TABLET, ENT COATED PO SCH ×2 (11:34→14:19)
[2018-05-11] MEDS: ATENOLOL 50 MG TABLET PO SCH (12:32)
--- NOTE | 2018-05-11 18:09 | XCELERA REPORT ---
[address] [address] Transthoracic Echocardiogram Report Name: NAVID CUMMINGS Age: 62 yrs Gender: Male : 1955 Patient Status: Inpatient Patient Location: [address] [place] [address] Study Date: 05/11/2018 09:52 AM Procedure: A two-dimensional transthoracic echocardiogram with color flow and Doppler was performed. Study Quality: Fair. Reason For Study: acute ischemic stroke (CVA) History: acute ischemic stroke (CVA). Ordering Physician: ANIL BRISCOE Performed By: Robyn Ritter Interpretation Summary The left ventricle is normal in size. There is normal left ventricular wall thickness. LV EF is > than 60% Left ventricular systolic function is normal. Doppler measurements suggest impaired left ventricular relaxation, which is associated with grade I/IV or mild diastolic dysfunction The left ventricular wall motion is normal. There is no thrombus. The left atrial size is normal. The interatrial septum is intact with no evidence for an atrial septal defect. There is no evidence of mitral valve prolapse. There is no vegetation seen on the mitral valve. There is no mitral valve stenosis. There is a trace amount of mitral regurgitation There is no aortic valvular vegetation. There is no aortic valve stenosis There is no LVOT obstruction. No aortic regurgitation is present. There is no tricuspid stenosis. No tricuspid regurgitation. Unable to calculate RVSP due to lack of TR jet. There is no pulmonic valvular stenosis. There is no pulmonic valvular regurgitation. There is no pericardial effusion. MMode/2D Measurements & Calculations RVDd: 3.3 cm LVIDd: 5.6 cmFS: 33.4 % Ao root diam: 3.4 cm IVSd: 0.98 cm LVIDs: 3.7 cmEDV(Teich): 154.7 ml Ao root area: 9.3 cm2 LVPWd: 1.0 cmESV(Teich): 59.6 ml EF(Teich): 61.5 % LVOT diam: 2.4 cm LVOT area: 4.5 cm2 Doppler Measurements & Calculations MV E max maria e: MV dec slope: Ao V2 max: LV V1 max P.7 cm/sec 97.0 cm/sec 1.8 mmHg MV A max maria e: 99.7 cm/sec2 Ao max PG: LV V1 max: 86.1 cm/sec MV dec time: 3.8 mmHg 66.7 cm/sec MV E/A: 0.52 0.45 sec IVA(V,D): 3.1 cm2 PA V2 max: 79.2 cm/sec PA max P.5 mmHg Left Ventricle The left ventricle is normal in size. There is normal left ventricular wall thickness. LV EF is > than 60%. Left ventricular systolic function is normal. Doppler measurements suggest impaired left ventricular relaxation, which is associated with grade I/IV or mild diastolic dysfunction. The left ventricular wall motion is normal. There is no thrombus. There is no ventricular septal defect visualized. Right Ventricle The right ventricle is grossly normal size. The right ventricle is not well visualized secondary to technical limitations. Atria The right atrium is normal. The left atrial size is normal. The interatrial septum is intact with no evidence for an atrial septal defect. Mitral Valve There is no evidence of mitral valve prolapse. There is no vegetation seen on the mitral valve. There is no mitral valve stenosis. There is a trace amount of mitral regurgitation. Aortic Valve There is no aortic valvular vegetation. There is no aortic valve stenosis. There is no LVOT obstruction. No aortic regurgitation is present. Tricuspid Valve There is no tricuspid stenosis. No tricuspid regurgitation. Unable to calculate RVSP due to lack of TR jet. Pulmonic Valve There is no pulmonic valvular stenosis. There is no pulmonic valvular regurgitation. Great Vessels The aortic root is not well visualized. Effusions There is no pericardial effusion. : ANIL BRISCOE > Maria D Curtis
--- NOTE | 2018-05-11 18:13 | PDOC PROGRESS REPORT ---
Subjective Progress Note for:: 05/11/18 Subjective:: No adverse events overnight. He says he did not have any more tingling in his right hand or in his right side of his face. He says his balance feels fine. No dizziness or headaches. No visual disturbances. He has been eating and drinking normally. Reason For Visit: ACUTE ISCHEMIC CVA Physical Exam Vital Signs: Temp Pulse Resp BP Pulse Ox 97.9 F 51 L 16 139/79 H 99 05/11/18 16:13 05/11/18 16:13 05/11/18 16:13 05/11/18 16:13 05/11/18 16:13 Intake & Output 05/10/18 05/11/18 05/12/18 06:59 06:59 06:59 Intake Total 360 710 Output Total 350 200 Balance 10 510 Weight 86 kg General appearance: PRESENT: no acute distress, well-developed, well-nourished Respiratory exam: PRESENT: clear to auscultation geena. ABSENT: rales, rhonchi, wheezes Cardiovascular exam: PRESENT: RRR. ABSENT: diastolic murmur, rubs, systolic murmur Vascular exam: PRESENT: normal capillary refill GI/Abdominal exam: PRESENT: normal bowel sounds, soft. ABSENT: distended, guarding, mass, organolmegaly, rebound, tenderness Extremities exam: PRESENT: full ROM. ABSENT: clubbing, pedal edema Musculoskeletal exam: PRESENT: ambulatory, normal inspection. ABSENT: deformity Neurological exam: PRESENT: alert, awake, oriented to person, oriented to place , oriented to time, CN II-XII grossly intact. ABSENT: motor sensory deficit Psychiatric exam: PRESENT: appropriate affect, normal mood Results Laboratory Results: 05/11/18 04:57 Triglycerides 450 H Cholesterol 169.65 LDL Cholesterol Direct 80 VLDL Cholesterol UNABLE TO CALCULATE HDL Cholesterol 27 L Impressions: Head CT 05/10/18 09:34 IMPRESSION: 1 No acute intracranial abnormality. 2 Slight to mild chronic right maxillary sinus disease. Small mucous retention cyst or polyp. EVIDENCE OF ACUTE STROKE: NO. Head MRI 05/10/18 11:05 IMPRESSION: Area of acute infarction basal ganglia on the left. Mild microvascular ischemia. EVIDENCE OF ACUTE STROKE: YES. LEFT MCA Brain MRI with MRA 05/10/18 16:32 IMPRESSION: Absent flow signal in the right internal carotid artery at the skullbase. There diminished flow signal in the right middle cerebral artery, flow to the right middle cerebral artery is likely across the anterior communicating artery and a small right posterior communicating artery. 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 Critical stenosis left proximal ICA at the bifurcation, greater than 80% stenosis. Results called to the patient's nurse Yaneli at 0700 hours 05/11/2018 Assessment & Plan - Diagnosis (1) Arterial ischemic stroke, MCA (middle cerebral artery), left, acute Is this a current diagnosis for this admission?: Yes Plan: MRA head and neck was positive for a totally occluded right ICA, and 80% occluded left ICA. He appeared to have evidence of collateral circulation on the right side of his brain. Echocardiogram is pending. He is on aspirin and is agreeable to trying a statin medication but he does not want Lipitor, Zocor, or Crestor because of the increased risk of muscle aches, which he said he has had before and they were very painful for him. I will start low-dose pravastatin. I contacted a vascular surgeon in [place] and spoke with him about this case. The surgeon recommended putting him on Plavix in addition to his aspirin, and getting a CTA of the head and neck because he felt like it was a better test for evaluating stenosis. He did not recommend putting him on a heparin drip. He said that he can follow-up in the office in 6-8 weeks for evaluation for possible surgery. We are still waiting on his echocardiogram results as well as the CTA. If there are no findings that would alter the plan of care, he could be discharged home. He told me that if he had to have surgery he would rather go to someone in [place] because he has gone to other doctors there before. I reiterated that he should quit smoking and he said he plans to do so. (2) Type 2 diabetes mellitus Qualifiers: Diabetes mellitus detention insulin use: without longwall foreman use Diabetes mellitus complication status: with other specified complication Qualified Code (s): E11.69 - Type 2 diabetes mellitus with other specified complication Is this a current diagnosis for this admission?: Yes Plan: Continue his home medications. Recommended that he be very cautious with his diet. He says if his blood sugar gets below 150 he starts to get symptomatic. He did not want to try to do anything that would bring his blood sugars below that. Hemoglobin A1c was pending. - Time Time Spent with patient: 25-34 minutes Smoking Cessation Education: 3 to 10 minutes Medications reviewed and adjusted accordingly: Yes
[2018-05-11] MEDS ORDERED: ATORVASTATIN CALCIUM 10 MG TABLET PO SCH (22:00)
--- NOTE | 2018-05-11 23:22 | RADIOLOGY REPORT (SQ) ---
EXAM DESCRIPTION: CTA NECK COMPLETED DATE/TIME: 05/11/2018 9:22 pm REASON FOR STUDY: acute ischemic CVA COMPARISON: None. TECHNIQUE: Axial dynamic scanning technique with dynamic contrast enhancement through the extra-scrap worker nial carotid and vertebral arteries. Multiplanar reconstruction. 3-D MIPS and Volume-rendered imag es acquired at the workstation and saved to PACS. Images are reviewed in soft tissue, bone, lung w indows. All CT scanners at this facility use dose modulation, iterative reconstruction, and/or weight based d osing when appropriate to reduce radiation dose to as low as reasonably achievable (ALARA). [facility]: Dose Right [facility]: CareDose [facility]: Dose Right [facility]: Teradose 4D [facility]: [place] CONTRAST TYPE AND DOSE: 80 mL Isovue 370- low osmolar. RENAL FUNCTION: BUN 17 creatinine 1.1 LIMITATIONS: None. FINDINGS: AORTIC ARCH: Normal three-vessel origin. Bilateral subclavian arteries are patent. No d issection. RIGHT CAROTIDS: Common carotid is patent. The internal carotid is occluded about 15 mm from the bulb . RIGHT VERTEBRAL: Patent. No dissection. Plaques are present in the intracranial segment of the vert ebral. LEFT CAROTIDS: Patent common, internal and external carotid arteries. Moderate plaque is present in the carotid bulb. No dissection. LEFT VERTEBRAL: Patent. No dissection. Plaques are present in the intracranial segment of the verte bral. OTHER: No other significant finding. OTHER: 3-D reconstructions confirm findings. IMPRESSION: Atherosclerotic changes as described. There is complete occlusion of the right internal carotid artery. COMMENT: Quality ID #[id number]: Measurements of distal internal carotid diameter were used as the denomina tor for stenosis measurement. TECHNICAL DOCUMENTATION: JOB ID: [id number] Quality ID # [id number]: Final reports with documentation of one or more dose reduction techniques (e.g., Au tomated exposure control, adjustment of the mA and/or kV according to patient size, use of iterative reconstruction technique) 2010 [employer]- All Rights Reserved Reading location - IP/workstation name: [email or web address]
--- NOTE | 2018-05-12 08:08 | RADIOLOGY REPORT (SQ) ---
EXAM DESCRIPTION: CTA HEAD COMPLETED DATE/TIME: 05/11/2018 9:22 pm REASON FOR STUDY: acute ischemic CVA COMPARISON: CTA neck 05/11/2018 MRI brain and [place] 05/10/2018 TECHNIQUE: Post IV contrast scanning, thin section axial imaging through the brain to evaluate the a rterial structures. Source and MIP images are saved and reviewed on PACS. Advanced 3D imaging as volume-rendering, MIPs, SSD performed? yes All CT scanners at this facility use dose modulation, iterative reconstruction, and/or weight based d osing when appropriate to reduce radiation dose to as low as reasonably achievable (ALARA). [facility]: Dose Right [facility]: CareDose [facility]: Dose Right [facility]: Teradose 4D [facility]: [employer] CONTRAST TYPE AND DOSE: contrast/concentration: Isovue 370.00 mg/ml; Total Contrast Delivered: 80.0 ml; Total Saline Delivered: 75.0 ml RENAL FUNCTION: Creatinine 1.1 LIMITATIONS: None. FINDINGS: Prior CT angio neck was reviewed, along with the [place] MRA and carotid bifurcat ion MRA. Right cervical internal carotid is occluded. High-grade narrowing of the proximal left ICA at the bifurcation, greater than 70% diameter stenosis. This report was called to Dr. Fuller 0730 hours 05/12/2018. [place] [facility] [place]: On the CT images, the right carotid at the skullbase is occluded. Minimal enhancem ent is seen along the right para clinoid ICA from patent anterior communicating artery. There is enh ancement of the right middle cerebral artery branches. The bilateral anterior cerebral arteries are normal, left middle cerebral artery is normal. Heavily calcified left parasellar carotid. Left carotid at the skullbase is patent. POSTERIOR CIRCULATION: Atherosclerotic calcification of both distal intracranial vertebral arteries w ith moderate stenosis. Basilar artery patent. Cerebellar arteries are patent. BRAIN: Small acute infarct, nonhemorrhagic left posterior limb internal capsule/ thalamus. BONES: Intact as visualized. SINUSES: No fluid or mucosal thickening. OTHER: No other significant finding. IMPRESSION: Occluded right ICA at the skullbase. Flow identified throughout the [place] although there is decreased contrast enhancement in t he right MCA as compared to the left. This is similar compared to the MRA a [place] 8. Small nonhemorrhagic infarct left posterior limb internal capsule/ thalamus Findings from the prior exams were discussed with Dr. Fuller, including a chronic appearing occluded right cervical internal carotid artery, and critical stenosis at the left carotid bifurcation with g reater than 70% stenosis proximal left ICA. TECHNICAL DOCUMENTATION: JOB ID: [id number] Quality ID # [id number]: Final reports with documentation of one or more dose reduction techniques (e.g., Au tomated exposure control, adjustment of the mA and/or kV according to patient size, use of iterative reconstruction technique) 2010 [employer]- All Rights Reserved Reading location - IP/workstation name: [email or web address]
[2018-05-12] MEDS: GLYBURIDE 2.5 MG TABLET PO SCH ×2 (11:02→17:12)
[2018-05-12] MEDS: ASPIRIN 325 MG TABLET, ENT COATED PO SCH (11:02)
[2018-05-12] MEDS: CLONIDINE HCL 0.1 MG TABLET PO SCH (11:03)
[2018-05-12] MEDS: ATENOLOL 50 MG TABLET PO SCH (11:03)
[2018-05-12] MEDS: BUPROPION HCL 75 MG TABLET PO SCH (11:03)
[2018-05-12] MEDS: ENOXAPARIN SODIUM INJ 40 MG/0.4 ML DISP.SYRIN SUBCUT SCH (11:04)
[2018-05-12 11:52] VITALS: BP 154/85
--- NOTE | 2018-05-12 14:31 | PDOC DISCHARGE SUMMARY ---
General - Admit/Disc Date/PCP Admission Date/Primary Care Provider: 05/10/18 15:48 FIDELIA CHRISTIE MD Discharge Date: 05/12/18 - Discharge Diagnosis (1) Arterial ischemic stroke, MCA (middle cerebral artery), left, acute Is this a current diagnosis for this admission?: Yes (2) Carotid artery occlusion Is this a current diagnosis for this admission?: Yes (3) Type 2 diabetes mellitus Is this a current diagnosis for this admission?: Yes (4) Hypertriglyceridemia Is this a current diagnosis for this admission?: Yes (5) Hypertension Is this a current diagnosis for this admission?: Yes - Additional Information Resuscitation Status: Full Code Home Medications: Olmesartan/Hydrochlorothiazide [Olmesartan-Hctz 40-25 mg Tab] 1 tab PO DAILY 12/27 Atenolol [Tenormin 50 mg Tablet] 25 mg PO DAILY tablet 05/12/18 Atorvastatin Calcium [Lipitor 10 mg Tablet] 10 mg PO QHS tablet 05/12/18 Bupropion HCl [Wellbutrin 75 mg Tablet] 75 mg PO DAILY tablet 05/12/18 Clonidine HCl [Catapres 0.1 mg Tablet] 0.1 mg PO Q12 tablet 05/12/18 Glyburide [Diabeta 2.5 mg Tablet] 2.5 mg PO BID tablet 05/12/18 Metformin HCl [Glucophage 500 mg Tablet] 500 mg PO BID tablet 05/12/18 History of Present Illness Patient complains of: Dizziness and numbness 2-3 days prior to admission History of Present Illness: NAVID CUMMINGS is a 62 year old male who had some dizziness 3 days ago while doing some light outdoor work. The next day he had some trouble driving, couldn't keep the car in the igor consistently. Yesterday and today he had some numbness in the tips of his right thumb and right index finger, and in his lips on the right side of his face. He had some trouble standing on his right foot, mainly a balance problem because he did not feel weak. His MRI in the ER was positive for a stroke in the basal ganglia. Hospital Course Hospital Course: This patient presents to the emergency room with complaints of dizziness which progressed to numbness and tingling of his right thumb and right index finger as well as a sleeps on the right side of his face. He also had trouble standing and ambulating. He had a CT scan of his brain done which was negative for acute findings however his MRI showed an acute stroke in the basal ganglia. Subsequent imaging studies revealed total occlusion of the right internal carotid artery and MRA of the neck showed more than 80% stenosis of the left proximal ICA. Patient symptoms have actually improved since admission although he still endorses some numbness of his thumb and index finger. He has no other obvious or acute deficits. Patient was not started on any heparin intravenously although he did receive prophylactic Lovenox. She also declined to take any statin as he apparently had prior complains of muscle ache when he was on it. His triglyceride is noted to be more than 400. He has been on aspirin and Plavix. His antihypertensives have already been restarted and patient has been placed back on metformin and glyburide as per outpatient use. Patient has remained hemodynamically stable throughout his hospital stay After discussion with transfer center at [facility] patient is been transferred under the care of Dr. Gayle for further management of his carotid stenosis. Physical Exam Vital Signs: Temp Pulse Resp BP Pulse Ox 97.8 F 60 18 154/85 H 97 05/12/18 10:50 05/12/18 10:50 05/12/18 10:50 05/12/18 10:50 05/12/18 10:50 Intake & Output 05/11/18 05/12/18 05/13/18 06:59 06:59 06:59 Intake Total 360 710 850 Output Total 350 325 725 Balance 10 385 125 Weight 86 kg 85.2 kg General appearance: PRESENT: no acute distress, well-developed, well-nourished Head exam: PRESENT: atraumatic, normocephalic Eye exam: PRESENT: conjunctiva pink, EOMI, PERRLA. ABSENT: scleral icterus Ear exam: PRESENT: normal external ear exam Mouth exam: PRESENT: moist, tongue midline Neck exam: ABSENT: carotid bruit, JVD, lymphadenopathy, thyromegaly Respiratory exam: PRESENT: clear to auscultation geena. ABSENT: rales, rhonchi, wheezes Cardiovascular exam: PRESENT: RRR. ABSENT: diastolic murmur, rubs, systolic murmur Pulses: PRESENT: normal dorsalis pedis pul Vascular exam: PRESENT: normal capillary refill GI/Abdominal exam: PRESENT: normal bowel sounds, soft. ABSENT: distended, guarding, mass, organolmegaly, rebound, tenderness Rectal exam: PRESENT: deferred Extremities exam: PRESENT: full ROM. ABSENT: calf tenderness, clubbing, pedal edema Neurological exam: PRESENT: alert, awake, oriented to person, oriented to place , oriented to time, oriented to situation, other - Diminished sensation to touch right thumb. ABSENT: motor sensory deficit Psychiatric exam: PRESENT: appropriate affect, normal mood. ABSENT: homicidal ideation, suicidal ideation Skin exam: PRESENT: dry, intact, warm. ABSENT: cyanosis, rash Results Laboratory Results: 05/10/18 09:19 05/10/18 09:19 MCV 98 fl (80-97) H 05/10/18 09:19 MCH 34.3 pg (27.0-33.4) H 05/10/18 09:19 MCHC 35.1 g/dL (32.0-36.0) 05/10/18 09:19 RDW 13.3 % (11.5-14.0) 05/10/18 09:19 Seg Neutrophils % 66.7 % (42-78) 05/10/18 09:19 Lymphocytes % 24.5 % (13-45) 05/10/18 09:19 Monocytes % 7.5 % (3-13) 05/10/18 09:19 Eosinophils % 0.6 % (0-6) 05/10/18 09:19 Basophils % 0.7 % (0-2) 05/10/18 09:19 Absolute Neutrophils 6.0 10^3/uL (1.7-8.2) 05/10/18 09:19 Absolute Lymphocytes 2.2 10^3/uL (0.5-4.7) 05/10/18 09:19 Absolute Monocytes 0.7 10^3/uL (0.1-1.4) 05/10/18 09:19 Absolute Eosinophils 0.1 10^3/uL (0.0-0.6) 05/10/18 09:19 Absolute Basophils 0.1 10^3/uL (0.0-0.2) 05/10/18 09:19 Chloride 102 mmol/L (98-107) 05/10/18 09:19 Carbon Dioxide 32 mmol/L (22-30) H 05/10/18 09:19 Anion Gap 11 (5-19) 05/10/18 09:19 Est GFR ( Amer) > 60 (>60) 05/10/18 09:19 Est GFR (Non-Af Amer) > 60 (>60) 05/10/18 09:19 Glucose 183 mg/dL (75-110) H 05/10/18 09:19 Calcium 10.2 mg/dL (8.4-10.2) 05/10/18 09:19 Magnesium 1.7 mg/dL (1.6-2.3) 05/10/18 09:19 Triglycerides 450 mg/dL (<150) H 05/11/18 04:57 Cholesterol 169.65 mg/dL (0-200) 05/11/18 04:57 LDL Cholesterol Direct 80 mg/dL (<100) 05/11/18 04:57 VLDL Cholesterol UNABLE TO CALCULATE 05/11/18 04:57 HDL Cholesterol 27 mg/dL (>40) L 05/11/18 04:57 Urine Color YELLOW 05/10/18 09:40 Urine Appearance CLEAR 05/10/18 09:40 Urine pH 5.0 (5.0-9.0) 05/10/18 09:40 Ur Specific [place] 1.026 05/10/18 09:40 Urine Protein 30 mg/dL (NEGATIVE) H 05/10/18 09:40 Urine Glucose (UA) NEGATIVE mg/dL (NEGATIVE) 05/10/18 09:40 Urine Ketones NEGATIVE mg/dL (NEGATIVE) 05/10/18 09:40 Urine Blood NEGATIVE (NEGATIVE) 05/10/18 09:40 Urine Nitrite NEGATIVE (NEGATIVE) 05/10/18 09:40 Ur Leukocyte Esterase NEGATIVE (NEGATIVE) 05/10/18 09:40 Urine WBC (Auto) 6 /HPF 05/10/18 09:40 Urine RBC (Auto) 0 /HPF 05/10/18 09:40 05/10/18 09:19 Creatine Kinase 51 L Impressions: Head CT 05/10/18 09:34 IMPRESSION: 1 No acute intracranial abnormality. 2 Slight to mild chronic right maxillary sinus disease. Small mucous retention cyst or polyp. EVIDENCE OF ACUTE STROKE: NO. Head MRI 05/10/18 11:05 IMPRESSION: Area of acute infarction basal ganglia on the left. Mild microvascular ischemia. EVIDENCE OF ACUTE STROKE: YES. LEFT MCA Brain MRI with MRA 05/10/18 16:32 IMPRESSION: Absent flow signal in the right internal carotid artery at the skullbase. There diminished flow signal in the right middle cerebral artery, flow to the right middle cerebral artery is likely across the anterior communicating artery and a small right posterior communicating artery. 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 Critical stenosis left proximal ICA at the bifurcation, greater than 80% stenosis. Results called to the patient's nurse Yaneli at 0700 hours 05/11/2018 Head CTA 05/11/18 00:00 IMPRESSION: Occluded right ICA at the skullbase. Flow identified throughout the [place] although there is decreased contrast enhancement in the right MCA as compared to the left. This is similar compared to the MRA a [place] 05/10/2018. Small nonhemorrhagic infarct left posterior limb internal capsule/ thalamus Findings from the prior exams were discussed with Dr. Fuller, including a chronic appearing occluded right cervical internal carotid artery, and critical stenosis at the left carotid bifurcation with greater than 70% stenosis proximal left ICA. Neck CTA 05/11/18 00:00 IMPRESSION: Atherosclerotic changes as described. There is complete occlusion of the right internal carotid artery. Qualifiers - * PATIENT BEING DISCHARGED WITH ANY OF THE FOLLOWING DIAGNOSIS: Stroke Stroke Pt being discharged on Anti-thrombolytic therapy?: Yes Stroke Pt being discharged on Anti-coagulation therapy?: No Reason(s) for not prescribing Anti-coagulation therapy:: Medical Contraindication - Possible intervention planned Stroke Pt being discharged on Statins?: No Reason(s) for not prescribing Statins therapy:: Drug declined by patient Plan Time Spent: Greater than 30 Minutes
== END 2018-05-12 17:43 | disposition short-term general hospital (02) | DRG 66 ==
LOC: ER 08:45 → EH 15:48 → 3W 22:15
PROVIDERS: ADMIT Internal Medicine; ATTEND Internal Medicine
DX: I63.512 Cerebral infarction due to unspecified occlusion or stenosis of left middle cerebral artery (principal); R53.1 Weakness; I10 Essential (primary) hypertension; I25.10 Atherosclerotic heart disease of native coronary artery without angina pectoris; E11.9 Type 2 diabetes mellitus without complications; F17.210 Nicotine dependence, cigarettes, uncomplicated; R20.0 Anesthesia of skin; Z86.19 Personal history of other infectious and parasitic diseases; Z95.5 Presence of coronary angioplasty implant and graft; Z79.82 Long term (current) use of aspirin; Z79.84 Long term (current) use of oral hypoglycemic drugs; Z88.0 Allergy status to penicillin; Z88.8 Allergy status to other drugs, medicaments and biological substances
CPT/HCPCS: 36415; 70450; 70496; 70498; 70544; 70549; 70551; 80048; 80061; 80307; 81001; 82550; 83036; 83735; 85025; 85610; 85730; 93005; 93010; 93306; 96361; 96374; 99285; 99406; J1650; J3411; J3490; J7030; J7050

== ENCOUNTER → 2019-12-14 | Outpatient (CLI) | payer MEDICARE, OTHER ==
--- NOTE | 2019-12-14 13:40 | RADIOLOGY REPORT (SQ) ---
EXAM DESCRIPTION: U/S ABDOMEN LIMITED W/O DOP COMPLETED DATE/TIME: 12/14/2019 8:36 am REASON FOR STUDY: ALCOHOLIC CIRRHOSIS OF LIVER WITHOUT ASCITES K70.30 ALCOHOLIC CIRRHOSIS OF LIVER WITHOUT ASCITES COMPARISON: 02/24/2017 TECHNIQUE: Dynamic and static grayscale images acquired of the abdomen and recorded on PACS. Alvaroo alisa selected color Doppler and spectral images recorded. LIMITATIONS: None. FINDINGS: PANCREAS: No masses. Visualized pancreatic duct normal caliber. LIVER: No masses. Echotexture normal. LIVER VASCULATURE: Normal directional flow of the main portal vein and hepatic veins. GALLBLADDER: Contracted gallbladder with stones. The wall is thickened to 3.3 mm. ULTRASOUND-DETECTED CORNELIUS'S SIGN: Negative. INTRAHEPATIC DUCTS AND COMMON DUCT: CBD and intrahepatic ducts normal caliber. No filling defects. INFERIOR VENA CAVA: Not imaged. AORTA: No aneurysm. RIGHT KIDNEY: Normal size 10.8 cm. Normal echogenicity. No solid or suspicious masses. No hydronephr osis. No calcifications. PERITONEAL AND RIGHT PLEURAL SPACE: No ascites or effusions. OTHER: No other significant findings. IMPRESSION: Contracted gallbladder with gallstones. Mild thickening of gallbladder wall. Negative sonographic Cornelius sign. TECHNICAL DOCUMENTATION: JOB ID: [id number] [employer]- All Rights Reserved Reading location - IP/workstation name: [email or web address]
== END ==
LOC: RAD 07:58
PROVIDERS: ATTEND Internal Medicine Gastroenterology
DX: K70.30 Alcoholic cirrhosis of liver without ascites (principal)
CPT/HCPCS: 76705

== ENCOUNTER 2020-11-15 12:55 | Emergency (ER) | payer MEDICARE, OTHER ==
[2020-11-15 13:02] VITALS: BP 140/83
[2020-11-15] MEDS ORDERED: LIDOCAINE 1%/EPINEPHRINE INJ 20 ML VIAL INJ ONE (14:16)
[2020-11-15] MEDS ORDERED: DIPH/PERTUSS(ACELL)/TETANUS VAC/PF 0.5 ML SYR (>=10YO) IM ONE (14:20)
--- NOTE | 2020-11-15 14:27 | ER Document Report ---
ED Foreign Body - General Stated Complaint: FOOT PROBLEM Time Seen by Provider: 11/15/20 14:04 Primary Care Provider: CHANG SUNG MD [Primary Care Provider] - Follow up as needed Mode of Arrival: Ambulatory Information source: Patient TRAVEL OUTSIDE OF THE [place] IN LAST 30 DAYS: No - HPI Patient complains to provider of: Left foot pain, foreign body Notes: Patient with complaints of left heel pain. The patient states that 2 weeks ago he stepped on a Gum tree spur. He states that a few of the pointy spurs went into his left heel. He states that his was able to remove part of it but there still remains a piece in his heel is causing him pain. He states it is difficult to walk due to the pain. Pain is moderate, constant, worse with ambulation, better when he does not put weight on it. He denies any fever. He denies any redness. He denies any drainage. He denies any nausea, vomiting, diarrhea. No chest pain or shortness of breath. No rash. Patient is a diabetic, he states that he is very well controlled diabetic. - Related Data Allergies/Adverse Reactions: Penicillins Allergy (Severe, Verified 10/08/17 13:21) succinylcholine chloride [From Anectine] Allergy (Severe, Verified 10/08/17 13:21) Past Medical History - General Information source: Patient - Social History Smoking Status: Current Every Day Smoker Frequency of alcohol use: Occasional Drug Abuse: None Family History: Reviewed & Not Pertinent - Past Medical History Cardiac Medical History: Reports: Hx Coronary Artery Disease, Hx Hypertension Denies: Hx Heart Attack Pulmonary Medical History: Reports: Hx Pneumonia Denies: Hx Asthma, Hx Bronchitis, Hx COPD Neurological Medical History: Denies: Hx Cerebrovascular Accident, Hx Seizures Endocrine Medical History: Reports: Hx Diabetes Mellitus Type 2 Renal/ Medical History: Reports: Hx Kidney Stones. Denies: Hx Peritoneal Dialysis GI Medical History: Reports: Hx Hepatitis - C Musculoskeletal Medical History: Denies Hx Arthritis Psychiatric Medical History: Reports: Hx Depression - not medicated Infectious Medical History: Reports: Hx Hepatitis - C Past Surgical History: Reports: Hx Cardiac Catheterization - Stents 2008 and 2012, Hx Coronary Stent, Hx Orthopedic Surgery - right knee arthroscopic surgery, Hx Urinary Tract Surgery - kidney stone removal - Immunizations Hx Diphtheria, Pertussis, Tetanus Vaccination: Yes Review of Systems - Review of Systems -: Yes All other systems reviewed and negative Physical Exam - Vital signs Vitals: Temp Pulse Resp BP Pulse Ox 97.9 F 60 18 140/83 H 100 11/15/20 13:01 11/15/20 13:01 11/15/20 13:01 11/15/20 13:01 11/15/20 13:01 - Notes Notes: GENERAL: alert, cooperative, nontoxic, no distress. HEAD: normocephalic, atraumatic EYES: conjunctiva pink without discharge, no external redness or swelling. EARS: no external swelling, no external redness NOSE: atraumatic, no external swelling MOUTH/THROAT: mucous membranes moist and pink NECK: soft, supple, full range of motion, no meningismus. CHEST: no distress, lungs clear and equal throughout. No wheezing, rales, rhonchi. CARDIAC: regular rate and rhythm, no murmur EXTREMITIES: full range of motion of all extremities. No redness, no swelling. Patient with a small callused area with possible small amount of purulent drainage to the left heel. Tenderness to palpation. No visualized foreign body. There is no surrounding redness or active drainage. Normal pulse and sensation. No redness streaking up the leg. NEURO: alert and oriented 3, no focal deficits, full range of motion of all extremities. PYSCH: appropriate mood, affect. Patient is cooperative. SKIN: pink, warm, dry, no rash. Course - Re-evaluation Re-evalutation: 11/15/20 15:38 Patient resting comfortably this time. I have gone over results with the patient. Questions been answered. A small piece of glass was removed from the heel. Patient tolerated this well will be discharged home. Patient is nontoxic-appearing stable vitals. Patient states that he stepped on what he thought was a gum tree for barefoot in his driveway 2 weeks ago. He states that there was a small spur that his was able to get out but he states that he still feels like there is something in the heel of his foot. On exam he does have a little area does appear to be forming a small pustule that is tender to palpation. There is no surrounding redness he is afebrile. Patient states that he is a diabetic but very well controlled diabetic. He states that he has an appointment with podiatry but is not for 3 weeks and is requesting to have this foreign body removed today. We discussed the risks and benefits of him being a diabetic and me pulling a foreign body out of his foot. He verbalized understanding and states that he would prefer that I try to remove this foreign body today. X-ray does show a 6 mm linear foreign body in the heel where he is having his pain. The area was anesthetized and a small piece of glass was removed. His tetanus was updated. The patient will be discharged home on prophylactic antibiotics. Instructions to keep the wound clean and dry. 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 Follow-up sooner if he has any worsening pain, fever, redness, drainage, any further concerns. The patient's emergency department workup and current diagnosis were explained t o the patient and or family. Follow-up instructions were provided. Medications if prescribed were discussed. Instructions for when to return to the emergency department including specific worrisome symptoms were discussed with the patient and/or family. - Vital Signs Vital signs: Temp Pulse Resp BP Pulse Ox 97.9 F 60 18 140/83 H 100 11/15/20 13:01 11/15/20 13:01 11/15/20 13:01 11/15/20 13:01 11/15/20 13:01 - Laboratory Results Critical Laboratory Results Reviewed: No Critical Results - Radiology Results Critical Radiology Results Reviewed: No Critical Results Procedures - Incision and Drainage Left Foot Anesthetic type: 1% Lidocaine Blade size: 11 I&D procedure: Betadine prep applied, Shurclens applied, Sterile dressing applied Incision Method: Incision made by scalpel Notes: 11/15/20 15:41 Using 11 blade and made a small incision over the pustule lysed area to the heel. Small amount of purulent drainage was obtained. Wound was debrided and a small sliver of glass was removed with forceps. I did not feel any further foreign bodies were visualized any further foreign bodies. The wound was copiously irrigated and a sterile dressing was applied. Patient tolerated this well with no complications. Discharge - Discharge Clinical Impression: Foreign body of left heel Condition: Stable Disposition: HOME, SELF-CARE Instructions: Removal of Subcutaneous Foreign Object ([facility]) Additional Instructions: Take medications as prescribed. Keep area clean and dry. Follow-up for increas ed pain, fever, redness, drainage, any further concerns. Prescriptions: Cephalexin Monohydrate [Keflex 500 mg Capsule] 500 mg PO Q6H 5 Days capsule Referrals: CHANG SUNG MD [Primary Care Provider] - Follow up as needed
--- NOTE | 2020-11-15 15:13 | RADIOLOGY REPORT (SQ) ---
EXAM DESCRIPTION: FOOT LEFT COMPLETE IMAGES COMPLETED DATE/TIME: 11/15/2020 1:51 pm REASON FOR STUDY: FB in left heel-[place]. COMPARISON: None. NUMBER OF VIEWS: Three views. TECHNIQUE: AP, lateral and oblique radiographic images acquired of the left foot. LIMITATIONS: None. FINDINGS: MINERALIZATION: Normal. BONES: No acute fracture or cortical disruption. No lytic or blastic bone lesion. Moderate size freda caneal spur. JOINTS: No effusions. SOFT TISSUES: There is a linear foreign body in the plantar surface soft tissues overlying the calcan eus measuring about 6 mm. OTHER: No other significant finding. IMPRESSION: 6 mm linear foreign body in the plantar surface soft tissues. No acute fracture or disl ocation. Moderate plantar calcaneal spur which can be seen with plantar fasciitis. TECHNICAL DOCUMENTATION: JOB ID: [id number] [employer]- All Rights Reserved Reading location - IP/workstation name: [email or web address]
== END 2020-11-15 15:55 | disposition home or self-care (01) ==
LOC: ER 12:55
DX: S91.342A Puncture wound with foreign body, left foot, initial encounter (principal); W25.XXXA Contact with sharp glass, initial encounter; F17.200 Nicotine dependence, unspecified, uncomplicated; E11.9 Type 2 diabetes mellitus without complications; Z23 Encounter for immunization; Z86.19 Personal history of other infectious and parasitic diseases; Z88.0 Allergy status to penicillin
CPT/HCPCS: 90471; 90715; 99283; J3490